=== PATIENT | female | born 1950 | race Caucasian/White ===

== ENCOUNTER 2024-08-10 12:45 | Inpatient (IN) | payer MEDICARE, SELFPAY ==
[2024-08-10 13:11] VITALS: BP 135/75; PULSE 103; RESP 14; TEMP 36.4; O2SAT 97
[2024-08-10 13:15] VITALS: BMI 36.3
[2024-08-10] MEDS: TPN - Clinimix E 8%-14% Soln 2,000 ML with Multivitamins 10 ML, Trace Elements 1 ML, Fo... 63 ML IV (16:49)
[2024-08-10 16:52] LABS: Bedside Glucose 116 mg/dL (74-106)
[2024-08-10] MEDS: 0.9% Saline Lock 10 ML Syringe IV ×2 (16:58→21:26)
--- NOTE | 2024-08-10 19:37 | HP.PCM_ITS ---
HPI - General General Date of Admission: 08/10/24 Date of Service: 08/12/24 Chief Complaint: Here for rehabilitation. HPI Narrative ELGIN FERNANDEZ, is a 73 Female who presents with followin07/25/2024 Admit to [facility]. Recent SBO, upper abdominal pain yesterday. Slid to floor from walker. Large, parastomal hernia, squad took her to [facility]. Transfer to [facility] for SBO. NG placed for vomiting, feels better. Little output from ostomy, NG to LIWS. Lopressor IV for atrial fibrillation. Potassium IV for hypokalemia. 07/31/2024 General Surgery performed partial colectomy, colostomy, repair of incarcerated parastomal hernia. 08/06/2024 TPN started for poor nutritional intake. Good ostomy output. 08/07/2024 LTAC denied, failed peer to peer. 08/08/2024 Low fiber diet, TPN. Nephrology consulted, HUEY resolved. 08/10/2024 Admit to TCU with debility, here for rehabilitation, strengthening, prior to discharge home with SO. [facility] Medical History (Updated 08/10/24 @ 19:[address] Giovany Aldana MD) Acute kidney injury Osteoarthritis Hyperlipidemia, unspecified Essential (primary) hypertension Multiple fractures of pelvis Cataract Atrial fibrillation History of anal cancer Small bowel obstruction Parastomal hernia Gastric outlet obstruction Debility Home Medications ?Medication ?Instructions ?Recorded ?Last Taken ?Type apixaban 5 mg tablet (Eliquis) 5 mg PO BID AFIB 08/10/24 08:15 History atorvastatin 20 mg tablet 20 mg PO DAILY Cholesterol 0 08/10/24 08/09/24 20:20 History cholecalciferol (vitamin D3) 125 125 mcg PO DAILY Supp lement 08/10/24 08/10/24 08:15 History mcg (5,000 unit) capsule diltiazem HCl 240 mg capsule,24 240 mg PO Q12H Heart 0 08/10/24 Unknown History hr,extended release docusate sodium 100 mg capsule 100 mg PO BID Constipat ion 08/10/24 08/10/24 08:15 History (Dulcolax Stool Softener (docusate)) gabapentin 300 mg capsule 300 mg PO QHS Pain 08/10/24 08/10/24 08:20 History oxycodone-acetaminophen 5 mg-325 1 tab PO Q6H PRN Pain 08/10/24 08/10/24 11:00 History mg tablet (Endocet) pantoprazole 40 mg tablet,delayed 40 mg PO DAILY GERD 08/10/24 08/10/24 05:25 History release polyethylene glycol 3350 17 17 g PO DAILY Constipation 08/10/24 08/09/24 11:25 History gram/dose oral powder (Miralax) Allergy/AdvReac Type Severity Reaction Status Date / Time adhesive tape Allergy Itching/Fernie Verified 08/10/24 13:26 h propofol AdvReac Headache Verified 08/10/24 13:26 Family History (Updated 08/10/24 @ 19:[address] Giovany Aldana MD) Mother Hypertension Father Colon cancer Brother Colon cancer Aunt Breast cancer Aunt Breast cancer Aunt Liver cancer Surgical History (Updated 08/10/24 @ 19:[address] Giovany Aldana MD) History of rectal surgery History of oophorectomy History of hysterectomy Status post hernia repair Status post colostomy Status post partial colectomy Social History (Updated 08/10/24 @ 19:[address] Giovany Aldana MD) household members: significant other Smoking Status: Former smoker alcohol intake: never substance use type: does not use ROS Constitutional Constitutional: Reports weakness; Denies chills, fever(s) or weight gain ENT HEENT: Denies headache(s), nasal congestion or nasal discharge Cardiovascular Cardiovascular: Denies chest pain or palpitations Respiratory/Chest Respiratory/Chest: Denies cough, excessive phlegm production or shortness of breath with exertion Gastrointestinal Gastrointestinal: Reports anorexia and nausea; Denies abdominal pain or vomiting Genitourinary Genitourinary: Denies dysuria Musculoskeletal Musculoskeletal: Denies joint pain or joint swelling Integumentary Integumentary: Denies rash or wounds Neurologic Neurologic: Denies focal weakness, numbness or tingling Psychiatric Psychiatric: Denies anxiety, auditory hallucinations, depression, homicidal ideation or suicidal ideation Vital Signs Vital Signs Vital Signs: 08/10/24 13:11 08/10/24 13:58 Temperature 97.6 F L Temperature Source Temporal Pulse Rate 103 H Pulse Rhythm Irregular Pulse Strength Normal (2+) Respiratory Rate 14 Respiratory Effort Normal Non-Labored Respiratory Depth Normal Respiratory Pattern Normal Blood Pressure 135/75 H Blood Pressure Mean 95 Blood Pressure Source Monitor Blood Pressure Position Semi-Fowlers Blood Pressure Location Left Arm Pulse Ox 97 Oxygen Delivery Method Room Air Room Air Weight Weight: 103.646 kg Body Mass Index (BMI) 36.3 Physical Exam Const alert General Appearance: cooperative HEENT normocephalic Eyes PERRL and EOMs intact bilaterally Neck supple, no JVD and no carotid bruits Resp normal respiratory effort, normal air movement and clear to auscultation bilaterally Cardio regular rate and regular rhythm GI normal to inspection, nondistended, normoactive bowel sounds, non-tender and non-distended GI Narrative: Upper abdomen colostomy. Extremity normal capillary refill Extremity Narrative: Right lower extremity PICC line. General Extremity: Negative for edema Skin no rashes or lesions noted General Skin Exam: no breakdown Psych affect normal Appearance: appropriate Results Lab / Micro Data 08/11/24 10:30 08/11/24 10:30 Labs: Laboratory Results - last 24 hr 08/10/24 16:27: POC Glucose 116 H Assessment & Plan Assessment/Plan (1) Debility: (2) Gastric outlet obstruction: (3) Parastomal hernia: (4) Status post partial colectomy: (5) Status post colostomy: (6) Status post hernia repair: (7) Small bowel obstruction: (8) History of anal cancer: (9) Atrial fibrillation: (10) Cataract: (11) Multiple fractures of pelvis: (12) Essential (primary) hypertension: (13) Hyperlipidemia, unspecified: (14) Osteoarthritis: (15) Acute kidney injury: PLAN: Plan 73 year old female with below past medical history hospitalized for SBO, gastric outlet obstruction 2/2 incarcerated parastomal hernia, underwent partial colectomy, colostomy, repair parastomal hernia 07/31/2024, complicated by hypokalemia, acute kidney injury, requiring TPN, admitted to TCU with debility, here for rehabilitation, strengthening, prior to discharge home with SO. * Debility - PT/OT. * Pain - Oxycodone 5mg q6 prn pain (4-10). * Bowel - Miralax 17gm daily, colace 100mg bid. * Adult immunization - Administer pneumonia vaccine, covid vaccine, flu vaccine as appropriate. * DVT prophylaxis - Eliquis. * Atrial fibrillation - Diltiazem 240mg bid, Eliquis 5mg bid. * Hyperlipidemia - Atorvastatin 20mg qhs. * Vitamin D deficiency - D 125mcg daily. * Neuropathic pain - Gabapentin 300mg qhs. * GERD - Pantoprazole 40mg daily. * Nutrition - TPN. * Nausea - Zofran odt 8mg q8 prn, order X-ray abdomen.
[2024-08-10 21:21] VITALS: BP 125/79; PULSE 87
[2024-08-10] MEDS: dilTIAZem CD 240 MG Capsule PO (21:23)
[2024-08-10] MEDS: Docusate Sodium 100 MG Capsule PO (21:24)
[2024-08-10] MEDS: Gabapentin 300 MG Capsule PO (21:24)
[2024-08-10] MEDS: Atorvastatin Calcium 20 MG Tablet PO (21:24)
[2024-08-10] MEDS: APIXABAN 5 MG TABLET PO (21:24)
--- NOTE | 2024-08-10 22:58 | NURSING ---
Patient refusing lab draw for triglycerides. requesting to have drawn off PICC line, TPN currently running and can not draw lab off PICC line while TPN running, will pass along to have drawn in am after TPN finished.
[2024-08-11 00:26] LABS: Bedside Glucose 139 mg/dL (74-106)
[2024-08-11] MEDS: oxyCODONE 5 MG Tablet PO ×2 (03:14→21:19)
[2024-08-11 05:28] VITALS: BMI 36.3
[2024-08-11 06:32] LABS: Bedside Glucose 134 mg/dL (74-106)
[2024-08-11] MEDS: Docusate Sodium 100 MG Capsule PO ×2 (09:28→21:12)
[2024-08-11] MEDS: dilTIAZem CD 240 MG Capsule PO ×2 (09:28→21:12)
[2024-08-11] MEDS: Polyethylene Glycol 3350 17 GM PACKET PO (09:28)
[2024-08-11] MEDS: APIXABAN 5 MG TABLET PO ×2 (09:28→21:12)
[2024-08-11] MEDS: Tuberculin,Purif.prot.deriv. 50 TU/ML Vial 0.1 ML ID (09:29)
[2024-08-11] MEDS: Pantoprazole Sodium 40 MG Tablet PO (09:29)
[2024-08-11] MEDS: Cholecalciferol (Vit D3) 125 MCG CAPSULE (5,000 UNITS) PO (09:29)
[2024-08-11 10:39] LABS: Absolute Lymphocyte Count 0.52 X10^3/uL (0.83-4.51); Absolute Neutrophil Count 8.6 X10^3/uL (2.0-7.7); Basophil# 0.04 X10^3/uL; Basophil% 0.4 % (0-1); Eosinophil# 0.43 X10^3/uL; Eosinophils% 4.2 % (0-5); Hemoglobin 8.7 g/dL (12.0-15.0); Lymphocyte # 0.52 X10^3/ul (0.83-4.51); Lymphocyte % 5.1 % (19-41); Mean Corp Hgb Conc 31.1 g/dL (32-36); Mean Corpuscular Hgb 25.9 pg (27.0-32.0); Mean Corpuscular Volume 83.3 fL (81-99); Monocyte# 0.54 X10^3/uL; Monocyte% 5.3 % (0-10); NRBC Flagged by Analyzer 0 % (0-5); Neutrophil # 8.63 X10^3/uL (2.7-7.7); Neutrophil % 84.3 % (47-70); POSITIVE DIFFERENTIAL YES; Platelet Count 354 K/mm3 (150-450); RBC Distribution Width CV 16.9 % (11.6-14.6); RBC Distribution Width SD 50.4 fl (35.1-43.9); Red Blood Count 3.36 M/mm3 (4.2-5.4); White Blood Count 10.2 K/mm3 (4.4-11.0)
[2024-08-11 11:13] LABS: ALB/GLOB Ratio 1.2 RATIO (0.9-2.4); AST(SGOT) 15 U/L (<=31); Alanine Aminotransfer ALT/SGPT 12 U/L (<=34); Albumin, Serum 3.2 g/dL (3.4-4.8); Alkaline Phosphatase 136 U/L (35-104); Anion Gap 9 (5-15); BUN 25 mg/dL (4-19); BUN/Creat Ratio 37.9 RATIO (10-20); Calcium,Total 9.8 mg/dL (7.6-11.0); Carbon Dioxide 21.8 mmol/L (21.0-32.0); Chloride 104 mmol/L (98-108); Creatinine, Serum 0.67 mg/dL (0.70-1.20); EST Glomerular Filtration Rate 91 (>60); Globulin 2.7 g/dL (2.2-4.2); Glucose 170 mg/dL (70-99); Potassium 4.3 mmol/L (3.3-5.1); Protein, Total 5.9 g/dL (5.9-8.4); Sodium Level 135 mmol/L (133-145); Total Bilirubin 0.48 mg/dL (0.00-1.30)
[2024-08-11 11:55] LABS: Bedside Glucose 138 mg/dL (74-106)
[2024-08-11 13:23] LABS: Triglycerides 98 mg/dL
[2024-08-11] MEDS: TPN - Clinimix E 8%-14% Soln 2,000 ML with Multivitamins 10 ML, Trace Elements 1 ML, Fo... 63 ML IV (15:59)
[2024-08-11 16:00] VITALS: BP 143/79; PULSE 94; RESP 18; TEMP 36.7; O2SAT 92
[2024-08-11 18:04] LABS: Bedside Glucose 127 mg/dL (74-106)
[2024-08-11 21:10] VITALS: BP 148/81; PULSE 86
[2024-08-11] MEDS: 0.9% Saline Lock 10 ML Syringe IV (21:13)
[2024-08-11] MEDS: Atorvastatin Calcium 20 MG Tablet PO (21:13)
[2024-08-11] MEDS: Gabapentin 300 MG Capsule PO (21:16)
--- NOTE | 2024-08-11 21:38 | NURSING ---
Patient with c/o nausea, Dr. Aldana updated via secure backline. New order for Zofran odt 8mg po q8 prn nausea, verified by secure backline message.
[2024-08-11] MEDS: Ondansetron ODT 4 MG Tablet 8 MG PO (22:12)
[2024-08-12 00:16] LABS: Bedside Glucose 151 mg/dL (74-106)
--- NOTE | 2024-08-12 04:31 | NURSING ---
Patient's colostomy appliance started to leak, adhesive left loose, old appliance removed, area cleansed, skin prep applied to area surrounding stoma, appliance replaced with flange [id number] and bag [id number].
--- NOTE | 2024-08-12 05:31 | NURSING ---
Lab attempted lab draw, unable to obtain, patient request labs to be drawn off PICC line when TPN finished.
[2024-08-12 05:42] VITALS: BMI 36.1
[2024-08-12 06:15] LABS: Bedside Glucose 136 mg/dL (74-106)
--- NOTE | 2024-08-12 07:45 | RAD_ITS ---
PROCEDURE: ABDOMEN SINGLE VIEW 08/12/2024 REASON FOR EXAM: NAUSEA, PAIN. RECENT SBO WITH PARTIAL COLECTOMY AND COLOSTOMY TECHNIQUE: Single view abdomen. COMPARISON: None available FINDINGS: Bowel gas: Moderate constipation identified with fecal material distributed throughout the colon. No evidence of bowel obstruction. Calcifications: No suspicious calcifications. Bones: Healing fracture of the superior pubic ramus on the right side with healed fracture of the left inferior pubic ramus. Healing fracture of the left iliac bone. There is evidence of degenerative changes of both sacroiliac joints. Other: Surgical clips are seen overlying the lower abdomen. RAD/Abdomen Single View IMPRESSION: Nonspecific bowel gas pattern. Degenerative changes of the sacroiliac joints bilaterally as well as healing fr actures of the right superior and inferior pubic rami. Reading Location: [place] [address]
[2024-08-12] MEDS: Ondansetron ODT 4 MG Tablet 8 MG PO (08:14)
[2024-08-12] MEDS: dilTIAZem CD 240 MG Capsule PO ×2 (08:15→21:45)
[2024-08-12] MEDS: Docusate Sodium 100 MG Capsule PO ×2 (08:15→21:45)
[2024-08-12] MEDS: APIXABAN 5 MG TABLET PO ×2 (08:15→21:45)
[2024-08-12] MEDS: Cholecalciferol (Vit D3) 125 MCG CAPSULE (5,000 UNITS) PO (08:17)
[2024-08-12] MEDS: Pantoprazole Sodium 40 MG Tablet PO (08:17)
[2024-08-12 10:51] VITALS: O2SAT 96
[2024-08-12 11:07] LABS: ALB/GLOB Ratio 1.3 RATIO (0.9-2.4); AST(SGOT) 14 U/L (<=31); Alanine Aminotransfer ALT/SGPT 13 U/L (<=34); Albumin, Serum 3.3 g/dL (3.4-4.8); Alkaline Phosphatase 136 U/L (35-104); Anion Gap 10 (5-15); BUN 26 mg/dL (4-19); BUN/Creat Ratio 36.7 RATIO (10-20); Calcium,Total 9.8 mg/dL (7.6-11.0); Carbon Dioxide 20.9 mmol/L (21.0-32.0); Chloride 103 mmol/L (98-108); Creatinine, Serum 0.72 mg/dL (0.70-1.20); EST Glomerular Filtration Rate 87 (>60); Globulin 2.6 g/dL (2.2-4.2); Glucose 181 mg/dL (70-99); Potassium 4.2 mmol/L (3.3-5.1); Protein, Total 5.8 g/dL (5.9-8.4); Sodium Level 134 mmol/L (133-145); Total Bilirubin 0.48 mg/dL (0.00-1.30)
--- NOTE | 2024-08-12 11:48 | NURSING ---
Addendum entered by Marga Valadez 08/12/24 12:36: Yobani Watson, SURGICAL GARMENT FITTER from surgeons office called and ok with TCU nursing staff to DC cheyenne and when pt able to go ahead and call office to schedule f/u appt. Original Note: Discussed surgical follow-up appt with resident and significant other. Unsure about transport, significant other unable to transport. Discussed removing cheyenne here if physician allows and they would prefer than. Spoke with Cecelia in Dr. Crockett's office, order for nursing to remove cheyenne 2 weeks post op as long as there are no concerns with site. Updated resident/SO.
--- NOTE | 2024-08-12 13:04 | CASEMGMT ---
Social Work, TCU Admit Note: SW met w/pt and pt's significant other Adrian to complete initial assessment. Introduced self and role. Verified contacts. Patient confirmed code status as DNRCC-A w/intubation. Pt does not have LW/POA, she is to let staff know if she would like to complete these documents while here. SW did explain to pt that without the documents, her son(she has just one child) would be her decision maker, and Adrian would not be considered a decision maker. Pt states understanding. Educated pt and Adrian to [employer] coverage w/next review date of 08/16 and continued stay is not guaranteed. They are aware already of plan of care meeting Monday. Pt's goal is to return home w/spouse. She is open to C If needed, and will also need ostomy supplies. SW will continue to follow for d/c planning. ANDER Beltran
--- NOTE | 2024-08-12 15:53 | PHA.CONS_ITS ---
Documented by User: Lexus Urban 08/12/24 16:02 TCU RX Drug Regimen Review Subjective/Objective Subjective/Objective Subjective: TCU Admission. 73 YOF presented to outside hospital. Hospitalized for SBO, gastric outlet obstruction 2/2 incarcerated parastomal hernia, und erwent partial colectomy, colostomy, repair parastomal hernia 07/31/2024, complicated by hypokalemia, acute kidney injury, requiring TPN. Admitted to TCU with debility for strengthening and rehabilitation. Objective: Allergies adhesive tape Allergy (Verified 08/10/24 13:26) Itching/Rash Allergic to Band-Aid Brand adhesive and 3m Tape propofol Adverse Reaction (Verified 08/10/24 13:26) Headache Current Medications Generic Name Dose Route Start Last Admin Trade Name Freq PRN Reason Stop Dose Admin Apixaban 5 mg 08/10/24 22:00 08/12/24 08:15 Apixaban 5 Mg Tablet PO 5 mg BID ORTEGA Administration Atorvastatin Calcium 20 mg 08/10/24 22:00 08/11/24 21:13 Atorvastatin Calcium 20 Mg Tablet PO 20 mg QHS ORTEGA Administration Cholecalciferol 125 mcg 08/11/24 10:00 08/12/24 08:17 Cholecalciferol (Vit D3) 125 Mcg Capsule (5,000 Units) PO 125 mcg DAILY ORTEGA Administration Diltiazem HCl 240 mg 08/10/24 22:00 08/12/24 08:15 Diltiazem Cd 240 Mg Capsule PO 240 mg BID ORTEGA Administration Docusate Sodium 100 mg 08/10/24 22:00 08/12/24 08:15 Docusate Sodium 100 Mg Capsule PO 100 mg BID ORTEGA Administration Gabapentin 300 mg 08/10/24 22:00 08/11/24 21:16 Gabapentin 300 Mg Capsule PO 300 mg QHS ORTEGA Administration Sodium Chloride 100 mls @ 15 mls/hr 08/10/24 13:26 IV .Q6H40M PRN Saline Flush Multivitamins 10 ml/ Zinc/ 2,011.2 mls @ 63 mls/hr 08/12/24 16:00 Copper/Manganese/Selenium 1 ml IV 08/13/24 07:51 / Folic Acid 1 mg/ Total .Q24H ORTEGA Parenteral Nutrition Fat Emulsion Intravenous 250 mls @ 21 mls/hr 08/12/24 16:00 Intralipid 20% IV 08/13/24 03:54 .[id number] ORTEGA Ondansetron HCl 8 mg 08/11/24 21:36 08/12/24 08:14 Ondansetron Odt 4 Mg Tablet PO 8 mg Q8H PRN PRN Administration NAUSEA Oxycodone HCl 5 mg 08/10/24 17:23 08/11/24 21:19 Oxycodone 5 Mg Tablet PO 5 mg Q6 PRN Administration Pain Score 4-10 or Pre PT/OT Pantoprazole Sodium 40 mg 08/11/24 10:00 08/12/24 08:17 Pantoprazole Sodium 40 Mg Tablet PO 40 mg DAILY ORTEGA Administration Polyethylene Glycol 17 gm 08/11/24 10:00 08/12/24 08:16 Polyethylene Glycol 3350 17 Gm Packet PO Not Given DAILY ORTEGA Sodium Chloride 10 - 40 ml 08/10/24 13:26 08/11/24 21:13 0.9% Saline Lock 10 Ml Syringe IV 10 ml UD PRN Administration Open End PICC Flush Sodium Chloride 10 - 40 ml 08/10/24 13:26 0.9 % Nacl (Sterile) Posiflush 10 Ml IV UD PRN Port access or dressing change Tuberculin PPD 0.1 ml 08/18/24 10:00 Tuberculin,Purif.Prot.Deriv. 50 Tu/Ml Vial ID 08/18/24 10:01 X1 ONE Problem List Acute kidney injury (Acute) Osteoarthritis (Acute) Hyperlipidemia, unspecified (Acute) Essential (primary) hypertension (Acute) Multiple fractures of pelvis (Acute) Cataract (Acute) Atrial fibrillation (Acute) History of anal cancer (Acute) Small bowel obstruction (Acute) Status post hernia repair (Acute) Status post colostomy (Acute) Status post partial colectomy (Acute) Parastomal hernia (Acute) Gastric outlet obstruction (Acute) Debility (Acute) Vital Signs Temp Pulse Resp BP Pulse Ox O2 Del Method 98.1 F 86 18 148/81 H 96 Room Air 08/11/24 16:00 08/11/24 21:10 08/11/24 16:00 08/11/24 21:10 08/12/24 10:51 08/11/24 16:00 Oxygen Delivery Method Room Air Weight: 103.147 kg Body Mass Index (BMI) 36.1 Sodium 134 mmol/L (133-145) 08/12/24 09:45 Potassium 4.2 mmol/L (3.3-5.1) 08/12/24 09:45 Chloride 103 mmol/L (98-108) 08/12/24 09:45 Carbon Dioxide 20.9 mmol/L (21.0-32.0) L 08/12/24 09:45 Anion Gap 10 (5-15) 08/12/24 09:45 BUN 26 mg/dL (4-19) H 08/12/24 09:45 Creatinine 0.72 mg/dL (0.70-1.20) 08/12/24 09:45 Est GFR (MDRD) Non-Af 87 (>60) 08/12/24 09:45 BUN/Creatinine Ratio 36.7 RATIO (10-20) H 08/12/24 09:45 Glucose 181 mg/dL (70-99) H 08/12/24 09:45 Assessment/Plan: 1. Pain: Oxycodone 5mg PO Q6H PRN pain (4-10). Resident has received 1 dose of oxycodone (pain 11/07 - abdomen 08/11/24). Continue to monitor for constipation (last bowel movement 08/12/24), increased pain, respiratory depression/oversedation, falls (BEERs), and PRN usage. 2. Bowel: Miralax 17g PO daily, Docusate 100mg PO BID. Continue to monitor for constipation and/or diarrhea. Last bowel movement 08/12/24. 3. Atrial Fibrillation/DVT Prophylaxis: Diltiazem 240mg PO BID, Eliquis 5mg PO BID. Continue to monitor for s/sx of bleeding, hemoglobin (last 8.7g/dL 08/11/24), hematocrit (last 28% 08/11/24), renal function (last SCr 0.67mg/dL 08/11/24) and bradyarrhythmias. 4. Hyperlipidemia: Atorvastatin 20mg PO QHS. Please consider ordering a lipid panel as there is no panel in the chart. Thanks. Continue to monitor LFTs (last 08/12/24) and muscle pain. 5. GERD: Pantoprazole 40mg PO daily. Continue to monitor S/S of GERD, magnesium, and enteric infections (BEERs for C diff infections). 6. Neuropathic pain: Gabapentin 300mg PO QHS. Continue to monitor for falls/fractures (BEERs), confusion and renal function. 7. Nausea: Ondansetron ODT 8mg PO Q8 PRN.Resident has received 2 PRN doses. Continue to monitor for constipation (last bowel movement 08/12/24), QT prolongation, drowsiness and PRN usage. 8. Vitamin D deficiency: Vitamin D 125mcg PO daily. Please consider ordering a vitamin D level if clinically indicated since there are no levels in the chart. Thanks. 9. Nutrition: TPN and lipid dose today. Please continue to monitor electrolytes. Supervisor Plasma seeing resident. Assessment/Plan for indications treated with psychotropic medications: None Medical chart and medication regimen reviewed. The following medication irregularities or issues were identified: 1. Atorvastatin 20mg PO QHS. Please consider ordering a lipid panel as there is no panel in the chart. Thanks. 2. Vitamin D 125mcg PO daily. Please consider ordering a vitamin D level if clinically indicated since there are no levels in the chart. Thanks. Date Date of Note: 08/12/24 Documented by User: Dr. Giovany Aldana MD 08/12/24 17:25 TCU RX Drug Regimen Review Provider Comments Provider responsibility Provider Comments to Recommendations by Pharmacy Agree
[2024-08-12 16:00] VITALS: BP 132/73; PULSE 88; RESP 16; TEMP 36.4; O2SAT 96
[2024-08-12] MEDS: TPN - Clinimix E 8%-14% Soln 2,000 ML with Multivitamins 10 ML, Trace Elements 1 ML, Fo... 63 ML IV (16:49)
[2024-08-12] MEDS: Fat Emulsions 20% 250 ML IV (16:50)
[2024-08-12] MEDS: 0.9% Saline Lock 10 ML Syringe IV (16:50)
[2024-08-12 18:23] LABS: Bedside Glucose 142 mg/dL (74-106)
[2024-08-12] MEDS: Gabapentin 300 MG Capsule PO (21:45)
[2024-08-12] MEDS: Atorvastatin Calcium 20 MG Tablet PO (21:45)
[2024-08-12] MEDS: oxyCODONE 5 MG Tablet PO (21:45)
[2024-08-12 21:57] VITALS: BP 134/80; PULSE 94; PULSE 95; RESP 18
[2024-08-13 00:15] VITALS: PULSE 87; RESP 18
[2024-08-13 00:43] LABS: Bedside Glucose 127 mg/dL (74-106)
[2024-08-13 04:24] VITALS: BMI 36.0
[2024-08-13 06:34] LABS: Bedside Glucose 140 mg/dL (74-106)
[2024-08-13] MEDS: Docusate Sodium 100 MG Capsule PO ×2 (09:15→21:38)
[2024-08-13] MEDS: dilTIAZem CD 240 MG Capsule PO ×2 (09:15→21:38)
[2024-08-13] MEDS: APIXABAN 5 MG TABLET PO ×2 (09:15→21:38)
[2024-08-13] MEDS: Pantoprazole Sodium 40 MG Tablet PO (09:16)
[2024-08-13] MEDS: Cholecalciferol (Vit D3) 125 MCG CAPSULE (5,000 UNITS) PO (09:16)
[2024-08-13 09:18] VITALS: BP 124/66; PULSE 81; RESP 14; TEMP 36.8; O2SAT 95
[2024-08-13 10:14] VITALS: BP 119/66; PULSE 86; RESP 16; TEMP 37; O2SAT 99
[2024-08-13] MEDS: Ondansetron ODT 4 MG Tablet 8 MG PO (10:19)
[2024-08-13 10:39] VITALS: BMI 36.0
--- NOTE | 2024-08-13 11:51 | NURSING ---
Offered covid vaccine, VIS provided. Resident declines.
[2024-08-13 12:23] LABS: ALB/GLOB Ratio 1.2 RATIO (0.9-2.4); AST(SGOT) 25 U/L (<=31); Alanine Aminotransfer ALT/SGPT 21 U/L (<=34); Albumin, Serum 3.2 g/dL (3.4-4.8); Alkaline Phosphatase 170 U/L (35-104); Anion Gap 9 (5-15); BUN 26 mg/dL (4-19); BUN/Creat Ratio 34.7 RATIO (10-20); Calcium,Total 9.8 mg/dL (7.6-11.0); Carbon Dioxide 20.3 mmol/L (21.0-32.0); Chloride 107 mmol/L (98-108); Creatinine, Serum 0.75 mg/dL (0.70-1.20); EST Glomerular Filtration Rate 83 (>60); Estimated Creatinine Clearance 73.65 ml/min (50-250); Globulin 2.6 g/dL (2.2-4.2); Glucose 122 mg/dL (70-99); Potassium 4.3 mmol/L (3.3-5.1); Protein, Total 5.8 g/dL (5.9-8.4); Sodium Level 137 mmol/L (133-145); Total Bilirubin 0.49 mg/dL (0.00-1.30); Vitamin D,25 Hydroxy 37.2 ng/mL (30-100)
[2024-08-13 12:27] LABS: Bedside Glucose 110 mg/dL (74-106)
[2024-08-13 12:53] LABS: Cholesterol 111 mg/dL (<=200); High Density Lipoprotein 34 mg/dL; Low Density Lipoprotein Calc. 63 mg/dL; Triglycerides 73 mg/dL; Very Low Density Lipoprotein 15 mg/dL (5-40); cholesterol:hdl ratio screen 3.26
--- NOTE | 2024-08-13 14:29 | CHAPLAIN ---
Type of Pastoral Visit _x__ Initial Visit ___ Follow-up Visit ___ On-call Visit ___ General Patient Visit ___ Spiritual Assessment ___ Family Conference ___ Bereavement ___ Rapid Response ___ Code Blue ___ Other (describe below) Pastoral Care Referral From _x__ Patient ___ Family ___ Nurse ___ Physician ___ Country Director ___ Saw Tailer ___ Other (describe below) Sacrament/Intervention _x__ Active listening ___ Anointing ___ Tenriism ___ Bereavement ___ Communion ___ Radha exploration ___ ___ Life review ___ Prayer ___ Reconciliation ___ Sacrament of Sick _x__ Supportive presence ___ Wedding ___ Other (describe below) Pastoral Comments patient is quietly resting in bed but is awake; pt states that she has limited family or friends in the area but does not feel like she has any concerns; pt has hope that this will be a good experience but admits that it is early; pt denies need for spiritual care support today
[2024-08-13] MEDS: Atorvastatin Calcium 20 MG Tablet PO (21:38)
[2024-08-13] MEDS: Gabapentin 300 MG Capsule PO (21:38)
[2024-08-13] MEDS: 0.9% Saline Lock 10 ML Syringe IV (21:39)
[2024-08-13 21:48] VITALS: BP 136/84; PULSE 91
[2024-08-14 04:43] VITALS: BMI 35.5
--- NOTE | 2024-08-14 06:25 | NURSING ---
This nurse removed 35 cheyenne to abdominal surgical site per order. Patient tolerated the removal well. No drainage observed. Surgical site dry and intact. ABDs placed overtop abdominal surgical site to prevent abrasions against abdominal binder. Patient repositioned to comfort, assessed needs. Patient denies further assistance or intervention. Patient thanked this nurse. Call light in patient's reach.
[2024-08-14 08:44] VITALS: BP 127/70; PULSE 93; RESP 18; TEMP 36.9; O2SAT 99
[2024-08-14] MEDS: APIXABAN 5 MG TABLET PO ×2 (08:46→20:58)
[2024-08-14] MEDS: dilTIAZem CD 240 MG Capsule PO ×2 (08:46→21:08)
[2024-08-14] MEDS: Cholecalciferol (Vit D3) 125 MCG CAPSULE (5,000 UNITS) PO (08:46)
[2024-08-14] MEDS: Pantoprazole Sodium 40 MG Tablet PO (08:46)
[2024-08-14] MEDS: Docusate Sodium 100 MG Capsule PO ×2 (08:46→20:58)
--- NOTE | 2024-08-14 09:15 | NURSING ---
Addendum entered by Nanci Wilcox 08/14/24 18:32: Pt had one dose of PRN zofran today, effective. No further weakness/nausea episodes today. Original Note: ~0900 therapy notifies that pt had weakness after getting up and during morning care. Pt reports that she felt weak and nauseous but that it resolved by the time therapy ended. Reports that she has had similar episodes with strong food odors and yesterday morning. BLE, BUE strength WNL. A&O baseline. Vitals: bp-127/70, p-83, r-18, t-98.4, sp02-99% RA. Denies malaise and nausea and pain at this time.
--- NOTE | 2024-08-14 11:41 | NURSING ---
Pulp Screen Operator Note; Activity Asset: Nancy Hicks is independent in her choice of daily activities. Her significant other will bring items from home she may need. At this time she prefers in room activities over group. She has her smartphone she plays cards on, anabaptism visits, read, watches tv and she welcomes visits from our rn cvicu and therapy dog when available. Staff will remind her of weekly activities and respect her right to say no.
[2024-08-14] MEDS: Ondansetron ODT 4 MG Tablet 8 MG PO (14:05)
--- NOTE | 2024-08-14 14:53 | CASEMGMT ---
Social Work IDT met with patient and SO for care plan meeting. Discussed patient's progress in PT/OT/SN. Educated to [facility] insurance with NRD 08/14 and continued stay is not guaranteed with each review. Provided pt/family with written communication of insurance process and copay coverage during stay. Inquired about company pt used for previous ostomy supplies - [employer]. SW notified wound nurse. SW inquired about PCP - Dr. Meera Monique in [place], but she just retired July 30, and office schedule a March appt with another provider in the office that pt could not recall the name. SW educated to scheduling an appt at [facility], per protocol. Pt and SO noted they shared the rollator. SW observed SO uses a portable O2 tank and relies on the rollator for stability and mobility. is small in stature and walks slowly. SW offered to request a new rollator through insurance, if pt is able to pay the standard $60 copay and any additional copay. Pt agreed. CAROL inquired about assistance level pt needs to be at to return home. Pt prefers she increases her overall strength and independence with toileting. SW inquired she would DC prior meeting those goals, would she be interested in a SNF or would she return home. Pt stated she would return home regardless. CAROL educated to CAROL coordinating skilled HHC at [facility] to assist with transition home. SW will provide recommendations at time of DC and assist with needs. pt and SO appreciative. SW will continue to follow. Mayte Rees MAGAZINE HAND DOMESTIC FREIGHT FORWARDER
--- NOTE | 2024-08-14 15:01 | WOUNDNOTE ---
In to talk with patient about ostomy needs at home. Pt states she had anal cancer that had invaded into the vaginal wall. states she had a colostomy at this time. pt ended up with incarcerate paristomal hernia so they had to move the stoma. Pt states she was getting her ostomy supplies from [employer] and would like to continue getting the same appliances if possible. pt was using a one piece flat appliance with clip closure by [facility]. While in TCU will use the supplies stocked on the unit which is 2 piece flat [employer] appliances. pt does not feel she needs home health since she is not changing supplies or supply company at home. pt had previous stoma for over 7 years and states she feels very comfortable changing the appliance. this nurse will plan to change the appliance to assess the stoma to be sure pt doesn't need a convex appliance. pt appreciative. pt denies further needs at this time.
[2024-08-14] MEDS: Atorvastatin Calcium 20 MG Tablet PO (20:58)
[2024-08-14] MEDS: oxyCODONE 5 MG Tablet PO (20:59)
[2024-08-14] MEDS: Nystatin Powder 15gm Bottle 1 APPLIC TOPICAL (21:06)
[2024-08-14] MEDS: Gabapentin 300 MG Capsule PO (21:07)
[2024-08-15 05:45] VITALS: BMI 35.9
[2024-08-15 09:29] VITALS: BP 125/74; PULSE 88; RESP 17; TEMP 36.4; O2SAT 97
[2024-08-15] MEDS: Docusate Sodium 100 MG Capsule PO ×2 (09:33→21:02)
[2024-08-15] MEDS: Pantoprazole Sodium 40 MG Tablet PO (09:33)
[2024-08-15] MEDS: Cholecalciferol (Vit D3) 125 MCG CAPSULE (5,000 UNITS) PO (09:33)
[2024-08-15] MEDS: APIXABAN 5 MG TABLET PO ×2 (09:33→21:02)
[2024-08-15] MEDS: dilTIAZem CD 240 MG Capsule PO ×2 (09:33→21:02)
[2024-08-15] MEDS: Nystatin Powder 15gm Bottle 1 APPLIC TOPICAL ×2 (09:33→21:03)
--- NOTE | 2024-08-15 11:51 | MDS.RN ---
Pain assessment for MDS complete.
[2024-08-15] MEDS: Atorvastatin Calcium 20 MG Tablet PO (21:02)
[2024-08-15] MEDS: Gabapentin 300 MG Capsule PO (21:02)
[2024-08-15 21:13] VITALS: BP 120/65; PULSE 90
[2024-08-15] MEDS: oxyCODONE 5 MG Tablet PO (22:48)
[2024-08-16 05:40] VITALS: BMI 35.4
[2024-08-16 07:06] LABS: Absolute Lymphocyte Count 0.59 X10^3/uL (0.83-4.51); Absolute Neutrophil Count 4.2 X10^3/uL (2.0-7.7); Basophil# 0.03 X10^3/uL; Basophil% 0.5 % (0-1); Eosinophil# 0.41 X10^3/uL; Eosinophils% 7.1 % (0-5); Hematocrit 23.7 % (37-47); Hemoglobin 7.2 g/dL (12.0-15.0); Lymphocyte # 0.59 X10^3/ul (0.83-4.51); Lymphocyte % 10.3 % (19-41); Mean Corp Hgb Conc 30.4 g/dL (32-36); Mean Corpuscular Hgb 24.8 pg (27.0-32.0); Mean Corpuscular Volume 81.7 fL (81-99); Monocyte# 0.48 X10^3/uL; Monocyte% 8.4 % (0-10); NRBC Flagged by Analyzer 0 % (0-5); Neutrophil % 73.2 % (47-70); POSITIVE DIFFERENTIAL YES; Platelet Count 279 K/mm3 (150-450); RBC Distribution Width CV 16.8 % (11.6-14.6); RBC Distribution Width SD 50.1 fl (35.1-43.9); White Blood Count 5.7 K/mm3 (4.4-11.0)
--- NOTE | 2024-08-16 07:18 | NURSING ---
notified dr anderson pt hgb at 7.2-down from 8.7 on 08/11
[2024-08-16 08:17] LABS: Anion Gap 9 (5-15); BUN 15 mg/dL (4-19); BUN/Creat Ratio 18.6 RATIO (10-20); Calcium,Total 9.3 mg/dL (7.6-11.0); Carbon Dioxide 22.1 mmol/L (21.0-32.0); Chloride 108 mmol/L (98-108); Creatinine, Serum 0.79 mg/dL (0.70-1.20); EST Glomerular Filtration Rate 78 (>60); Estimated Creatinine Clearance 72.96 ml/min (50-250); Glucose 96 mg/dL (70-99); Potassium 3.7 mmol/L (3.3-5.1); Sodium Level 138 mmol/L (133-145)
[2024-08-16 09:00] VITALS: BP 143/76; PULSE 103; RESP 17; TEMP 36.6; O2SAT 96
[2024-08-16] MEDS: Nystatin Powder 15gm Bottle 1 APPLIC TOPICAL ×2 (09:32→21:31)
[2024-08-16] MEDS: Docusate Sodium 100 MG Capsule PO ×2 (09:32→21:30)
[2024-08-16] MEDS: dilTIAZem CD 240 MG Capsule PO ×2 (09:32→21:31)
[2024-08-16] MEDS: APIXABAN 5 MG TABLET PO ×2 (09:32→21:30)
[2024-08-16] MEDS: Pantoprazole Sodium 40 MG Tablet PO (09:33)
[2024-08-16] MEDS: Ondansetron ODT 4 MG Tablet 8 MG PO (09:33)
[2024-08-16] MEDS: Cholecalciferol (Vit D3) 125 MCG CAPSULE (5,000 UNITS) PO (09:33)
[2024-08-16] MEDS: Polyethylene Glycol 3350 17 GM PACKET PO (09:41)
[2024-08-16 10:49] LABS: Iron 13 ug/dL (50-170); Iron Binding Capacity,Total 253 ug/dL (250-450); Iron Binding Capacity,Unsat 240 ug/dL (228-428)
[2024-08-16] MEDS: 0.9% Saline Lock 10 ML Syringe IV ×3 (11:55→21:35)
--- NOTE | 2024-08-16 13:13 | CASEMGMT ---
Social Work SW completed BIMS () and PHQ-2 () for MDS assessment. Mayte Rees FAMILY DEVELOPMENT EXTENSION SPECIALIST HOSPITAL PLAN ADMINISTRATOR
--- NOTE | 2024-08-16 14:54 | NURSING ---
PT IS SCHEDULED TO RECEIVE TRANSFUSION- 2 UNITS. ORIGINALLY SCHEDULED FOR MONDAY. PT BECAME DIZZY- TRANSFUSION CHANGED TO WEEKEND PT IS SUPPOSED TO BE TRANSFUSED ON MONDAY
[2024-08-16] MEDS: Gabapentin 300 MG Capsule PO (21:29)
[2024-08-16] MEDS: oxyCODONE 5 MG Tablet PO (21:29)
[2024-08-16] MEDS: Atorvastatin Calcium 20 MG Tablet PO (21:31)
[2024-08-16 21:33] VITALS: BP 142/73; PULSE 92; RESP 16
[2024-08-17] VITALS (10 sets, daily range): BP systolic 112–159; BP diastolic 57–88; PULSE 68–98; RESP 18; TEMP 36.6–37.1; O2SAT 93–100; BMI 35.9
[2024-08-17] MEDS: dilTIAZem CD 240 MG Capsule PO ×2 (07:50→22:02)
[2024-08-17] MEDS: Cholecalciferol (Vit D3) 125 MCG CAPSULE (5,000 UNITS) PO (07:50)
[2024-08-17] MEDS: Docusate Sodium 100 MG Capsule PO ×2 (07:51→22:03)
[2024-08-17] MEDS: APIXABAN 5 MG TABLET PO ×2 (07:51→22:03)
[2024-08-17] MEDS: Pantoprazole Sodium 40 MG Tablet PO (07:51)
[2024-08-17] MEDS: Nystatin Powder 15gm Bottle 1 APPLIC TOPICAL ×2 (07:52→22:01)
[2024-08-17] MEDS: Polyethylene Glycol 3350 17 GM PACKET PO (07:52)
[2024-08-17] MEDS: Iron Polysaccharide Complex 150 MG CAPSULE PO (12:09)
[2024-08-17] MEDS: 0.9% Saline Lock 10 ML Syringe IV ×2 (13:29→16:44)
[2024-08-17] MEDS: 0.9% Normal Saline (100mL Bag) 100 ML 15 ML IV (13:29)
--- NOTE | 2024-08-17 14:09 | NURSING ---
pt a&o x3-lungs clear abdomen rounded but soft, lungs clear 1+ pedal edema-here for 2 units of blood
[2024-08-17] MEDS: Furosemide 20 MG/2 ML VIAL IV (16:44)
[2024-08-17] MEDS: Gabapentin 300 MG Capsule PO (22:01)
[2024-08-17] MEDS: oxyCODONE 5 MG Tablet PO (22:01)
[2024-08-17] MEDS: Atorvastatin Calcium 20 MG Tablet PO (22:03)
[2024-08-18 05:10] VITALS: BMI 35.8
[2024-08-18 09:25] VITALS: BP 136/63; PULSE 75; RESP 17; TEMP 36.4; O2SAT 96
[2024-08-18] MEDS: Docusate Sodium 100 MG Capsule PO ×2 (09:34→21:53)
[2024-08-18] MEDS: dilTIAZem CD 240 MG Capsule PO ×2 (09:34→21:53)
[2024-08-18] MEDS: APIXABAN 5 MG TABLET PO ×2 (09:34→21:53)
[2024-08-18] MEDS: Ascorbic Acid 500 MG Tablet PO (09:35)
[2024-08-18] MEDS: Pantoprazole Sodium 40 MG Tablet PO (09:35)
[2024-08-18] MEDS: Cholecalciferol (Vit D3) 125 MCG CAPSULE (5,000 UNITS) PO (09:35)
[2024-08-18] MEDS: Acetaminophen 500 MG Tablet 1000 MG PO (09:35)
[2024-08-18] MEDS: 0.9% Saline Lock 10 ML Syringe IV (09:36)
[2024-08-18] MEDS: Tuberculin,Purif.prot.deriv. 50 TU/ML Vial 0.1 ML ID (09:39)
[2024-08-18] MEDS: Iron Polysaccharide Complex 150 MG CAPSULE PO (09:42)
[2024-08-18 20:12] LABS: Absolute Lymphocyte Count 0.74 X10^3/uL (0.83-4.51); Absolute Neutrophil Count 3.9 X10^3/uL (2.0-7.7); Basophil# 0.03 X10^3/uL; Basophil% 0.5 % (0-1); Eosinophil# 0.39 X10^3/uL; Eosinophils% 6.8 % (0-5); Hematocrit 31.5 % (37-47); Hemoglobin 9.8 g/dL (12.0-15.0); Lymphocyte # 0.74 X10^3/ul (0.83-4.51); Mean Corp Hgb Conc 31.1 g/dL (32-36); Mean Corpuscular Hgb 25.7 pg (27.0-32.0); Mean Corpuscular Volume 82.7 fL (81-99); Mean Platelet Vol. 9.5 fl (6.2-12.0); Monocyte# 0.59 X10^3/uL; Monocyte% 10.4 % (0-10); NRBC Flagged by Analyzer 0 % (0-5); Neutrophil # 3.93 X10^3/uL (2.7-7.7); Neutrophil % 68.9 % (47-70); Platelet Count 209 K/mm3 (150-450); RBC Distribution Width CV 16.9 % (11.6-14.6); RBC Distribution Width SD 50.8 fl (35.1-43.9); Red Blood Count 3.81 M/mm3 (4.2-5.4); White Blood Count 5.7 K/mm3 (4.4-11.0)
[2024-08-18] MEDS: Atorvastatin Calcium 20 MG Tablet PO (21:53)
[2024-08-18] MEDS: Gabapentin 300 MG Capsule PO (21:53)
[2024-08-18] MEDS: oxyCODONE 5 MG Tablet PO (21:55)
[2024-08-18 21:59] VITALS: BP 148/83; PULSE 91; RESP 18; TEMP 36.7; O2SAT 96
[2024-08-19 05:13] VITALS: BMI 35.6
[2024-08-19 08:53] VITALS: BP 134/78; PULSE 87; RESP 17; TEMP 36.3; O2SAT 97
[2024-08-19] MEDS: dilTIAZem CD 240 MG Capsule PO ×2 (08:58→21:50)
[2024-08-19] MEDS: APIXABAN 5 MG TABLET PO ×2 (08:58→21:51)
[2024-08-19] MEDS: Iron Polysaccharide Complex 150 MG CAPSULE PO (08:58)
[2024-08-19] MEDS: Docusate Sodium 100 MG Capsule PO ×2 (08:58→21:51)
[2024-08-19] MEDS: Ascorbic Acid 500 MG Tablet PO (08:59)
[2024-08-19] MEDS: 0.9% Saline Lock 10 ML Syringe IV ×2 (08:59→21:55)
[2024-08-19] MEDS: Pantoprazole Sodium 40 MG Tablet PO (08:59)
[2024-08-19] MEDS: Polyethylene Glycol 3350 17 GM PACKET PO (08:59)
[2024-08-19] MEDS: Cholecalciferol (Vit D3) 125 MCG CAPSULE (5,000 UNITS) PO (08:59)
--- NOTE | 2024-08-19 09:00 | NURSING ---
Paper Tube Machine Operator Note; MDS for 08/17/2024 Complete
[2024-08-19] MEDS: oxyCODONE 5 MG Tablet PO (21:50)
[2024-08-19] MEDS: Gabapentin 300 MG Capsule PO (21:50)
[2024-08-19] MEDS: Atorvastatin Calcium 20 MG Tablet PO (21:51)
[2024-08-19 21:59] VITALS: BP 152/75; PULSE 75; RESP 18
[2024-08-19 22:00] VITALS: PULSE 75; RESP 16; O2SAT 96
[2024-08-20 05:15] VITALS: BMI 35.9
[2024-08-20] MEDS: Cholecalciferol (Vit D3) 125 MCG CAPSULE (5,000 UNITS) PO (08:04)
[2024-08-20] MEDS: Iron Polysaccharide Complex 150 MG CAPSULE PO (08:04)
[2024-08-20] MEDS: dilTIAZem CD 240 MG Capsule PO ×2 (08:04→21:29)
[2024-08-20] MEDS: Pantoprazole Sodium 40 MG Tablet PO (08:04)
[2024-08-20] MEDS: APIXABAN 5 MG TABLET PO ×2 (08:04→21:28)
[2024-08-20] MEDS: Polyethylene Glycol 3350 17 GM PACKET PO (08:04)
[2024-08-20] MEDS: Ascorbic Acid 500 MG Tablet PO (08:04)
[2024-08-20] MEDS: Docusate Sodium 100 MG Capsule PO ×2 (08:06→21:29)
[2024-08-20] MEDS: 0.9% Saline Lock 10 ML Syringe IV (08:07)
[2024-08-20 09:32] LABS: Magnesium 1.7 mg/dL (1.5-2.2); Phosphorus 3.4 mg/dL (2.7-4.5)
[2024-08-20 09:48] VITALS: BMI 35.9
[2024-08-20 15:58] VITALS: BP 153/75; PULSE 77; RESP 17; TEMP 36; O2SAT 98
[2024-08-20 21:00] VITALS: PULSE 91; RESP 18; O2SAT 96
[2024-08-20] MEDS: Atorvastatin Calcium 20 MG Tablet PO (21:28)
[2024-08-20] MEDS: Gabapentin 300 MG Capsule PO (21:29)
[2024-08-20] MEDS: Acetaminophen 500 MG Tablet 1000 MG PO (21:29)
[2024-08-20 21:30] VITALS: BP 133/64; PULSE 91; RESP 16
[2024-08-21 04:56] VITALS: BMI 35.6
[2024-08-21] MEDS: 0.9% Saline Lock 10 ML Syringe IV (05:57)
[2024-08-21 06:14] LABS: Hematocrit 31.9 % (37-47); Hemoglobin 9.9 g/dL (12.0-15.0)
[2024-08-21] MEDS: dilTIAZem CD 240 MG Capsule PO ×2 (07:40→22:30)
[2024-08-21] MEDS: Docusate Sodium 100 MG Capsule PO ×2 (07:40→22:30)
[2024-08-21] MEDS: Iron Polysaccharide Complex 150 MG CAPSULE PO (07:40)
[2024-08-21] MEDS: Pantoprazole Sodium 40 MG Tablet PO (07:41)
[2024-08-21] MEDS: Cholecalciferol (Vit D3) 125 MCG CAPSULE (5,000 UNITS) PO (07:41)
[2024-08-21] MEDS: APIXABAN 5 MG TABLET PO ×2 (07:41→22:30)
[2024-08-21] MEDS: Ascorbic Acid 500 MG Tablet PO (07:41)
[2024-08-21] MEDS: Polyethylene Glycol 3350 17 GM PACKET PO (07:41)
[2024-08-21] MEDS: Citalopram 10 MG Tablet PO (09:19)
[2024-08-21 10:00] VITALS: BP 116/69; PULSE 86; RESP 16; TEMP 36.7; O2SAT 97
--- NOTE | 2024-08-21 15:17 | NURSING ---
Colostomy leaking. Patient educated how to cut new wafer and apply new appliance. Patient denies questions at this time. Patient also made aware of new order for Citalopram.
[2024-08-21] MEDS: Acetaminophen 500 MG Tablet 1000 MG PO (15:51)
[2024-08-21 22:30] VITALS: BP 137/73; PULSE 83; RESP 18; O2SAT 96
[2024-08-21] MEDS: Gabapentin 300 MG Capsule PO (22:30)
[2024-08-21] MEDS: Atorvastatin Calcium 20 MG Tablet PO (22:30)
[2024-08-22 05:59] VITALS: BMI 35.9
[2024-08-22 08:11] VITALS: BP 114/66; PULSE 95; RESP 16; TEMP 36.3; O2SAT 97
--- NOTE | 2024-08-22 08:18 | MDS.RN ---
Information for the MDS was obtained from review of the clinical record, interview of resident, staff, and direct observation of resident?s care.
[2024-08-22] MEDS: dilTIAZem CD 240 MG Capsule PO ×2 (08:19→20:13)
[2024-08-22] MEDS: Iron Polysaccharide Complex 150 MG CAPSULE PO (08:19)
[2024-08-22] MEDS: Citalopram 10 MG Tablet PO (08:19)
[2024-08-22] MEDS: Docusate Sodium 100 MG Capsule PO ×2 (08:19→20:13)
[2024-08-22] MEDS: Cholecalciferol (Vit D3) 125 MCG CAPSULE (5,000 UNITS) PO (08:20)
[2024-08-22] MEDS: Ascorbic Acid 500 MG Tablet PO (08:20)
[2024-08-22] MEDS: Pantoprazole Sodium 40 MG Tablet PO (08:20)
[2024-08-22] MEDS: APIXABAN 5 MG TABLET PO ×2 (08:20→20:13)
[2024-08-22] MEDS: 0.9% Saline Lock 10 ML Syringe IV (18:22)
[2024-08-22] MEDS: Gabapentin 300 MG Capsule PO (20:12)
[2024-08-22] MEDS: Atorvastatin Calcium 20 MG Tablet PO (20:14)
[2024-08-23 04:51] VITALS: BMI 36.4
[2024-08-23 06:45] LABS: Absolute Lymphocyte Count 0.53 X10^3/uL (0.83-4.51); Absolute Neutrophil Count 5.6 X10^3/uL (2.0-7.7); Basophil# 0.03 X10^3/uL; Basophil% 0.4 % (0-1); Eosinophil# 0.29 X10^3/uL; Eosinophils% 4.1 % (0-5); Hematocrit 32.3 % (37-47); Hemoglobin 10.1 g/dL (12.0-15.0); Lymphocyte # 0.53 X10^3/ul (0.83-4.51); Lymphocyte % 7.5 % (19-41); Mean Corp Hgb Conc 31.3 g/dL (32-36); Mean Corpuscular Hgb 25.7 pg (27.0-32.0); Mean Corpuscular Volume 82.2 fL (81-99); Mean Platelet Vol. 9.6 fl (6.2-12.0); Monocyte# 0.64 X10^3/uL; NRBC Flagged by Analyzer 0 % (0-5); Neutrophil % 78.7 % (47-70); POSITIVE DIFFERENTIAL YES; Platelet Count 276 K/mm3 (150-450); RBC Distribution Width CV 17.2 % (11.6-14.6); RBC Distribution Width SD 51.8 fl (35.1-43.9); Red Blood Count 3.93 M/mm3 (4.2-5.4); White Blood Count 7.1 K/mm3 (4.4-11.0)
[2024-08-23 07:36] LABS: Anion Gap 11 (5-15); BUN 11 mg/dL (4-19); BUN/Creat Ratio 17.1 RATIO (10-20); Calcium,Total 9.3 mg/dL (7.6-11.0); Carbon Dioxide 22.6 mmol/L (21.0-32.0); Chloride 109 mmol/L (98-108); Creatinine, Serum 0.65 mg/dL (0.70-1.20); EST Glomerular Filtration Rate 92 (>60); Estimated Creatinine Clearance 74.09 ml/min (50-250); Glucose 95 mg/dL (70-99); Potassium 3.5 mmol/L (3.3-5.1); Sodium Level 143 mmol/L (133-145)
[2024-08-23] MEDS: Ondansetron ODT 4 MG Tablet 8 MG PO (07:53)
[2024-08-23] MEDS: Iron Polysaccharide Complex 150 MG CAPSULE PO (09:18)
[2024-08-23] MEDS: dilTIAZem CD 240 MG Capsule PO ×2 (09:19→21:27)
[2024-08-23] MEDS: Citalopram 10 MG Tablet PO (09:19)
[2024-08-23] MEDS: Pantoprazole Sodium 40 MG Tablet PO (09:20)
[2024-08-23] MEDS: Ascorbic Acid 500 MG Tablet PO (09:20)
[2024-08-23] MEDS: APIXABAN 5 MG TABLET PO ×2 (09:20→21:27)
[2024-08-23] MEDS: Cholecalciferol (Vit D3) 125 MCG CAPSULE (5,000 UNITS) PO (09:20)
[2024-08-23] MEDS: Docusate Sodium 100 MG Capsule PO ×2 (09:20→21:27)
[2024-08-23 10:00] VITALS: BP 121/73; PULSE 94; RESP 16; TEMP 36.6; O2SAT 98
[2024-08-23] MEDS: Acetaminophen 500 MG Tablet 1000 MG PO (10:29)
--- NOTE | 2024-08-23 13:46 | CASEMGMT ---
Addendum entered by Mayte Rees 08/23/24 15:22: spoke with pt and about HHC. Pt/ agreeable. - CAROL followed up with pt and provided list of skilled HHC agencies within geographical area, INN with insurance, that include quality and resource data via [employer] guide. Pt to review and notify this worker of choices. Original Note: Social Work Pt requesting to DC. CAROL spoke with pt and at bedside. Discussed pt's current LOF and if pt feels she is back to baseline, better or worse. Pt and both state pt has improved and returned to baseline. Pt can manage own toileting tasks. SW offered DC 08/28. Insurance update is 08/26. Pt and agreeable. SW offered HHC vs OP therapy. Pt and denied both. CAROL educated to continuing with therapy to prevent decline. Pt still denied. CAROL educated to contacting PCP if she changes her mind. SW confirmed need for rollator and copay cost. to transport at DC. - CAROL sent referral to [facility] for rollator. Plan: DC home with 08/28, rollator Mayte Rees ELECTRONIC WIRER TILER'S ASSISTANT
--- NOTE | 2024-08-23 15:06 | DS.PCM_ITS ---
Providers Date of Admission: 08/10/24 Primary Care Physician: Dr. Meera Monique MD Consultations 08/14/24 14:48 Consult: Onc/Wound/service center coordinator Routine Comment: Reason for Consult:: ostomy needs for home Reason For Visit: GASTRIC OBSTRUCTION Diagnosis Discharge Diagnosis (1) Debility: Status: Acute Code(s): R53.81 - Other malaise (2) Gastric outlet obstruction: Status: Acute Code(s): K31.1 - Adult hypertrophic pyloric stenosis (3) Parastomal hernia: Status: Acute Code(s): K43.5 - Parastomal hernia without obstruction or gangrene (4) Status post partial colectomy: Status: Acute Code(s): Z90.49 - Acquired absence of other specified parts of digestive tract (5) Status post colostomy: Status: Acute Code(s): Z93.3 - Colostomy status (6) Status post hernia repair: Status: Acute Code(s): Z98.890 - Other specified postprocedural states; Z87.19 - Personal history of other diseases of the digestive system (7) Small bowel obstruction: Status: Acute Code(s): K56.609 - Unspecified intestinal obstruction, unspecified as to partial versus complete obstruction (8) History of anal cancer: Status: Acute Code(s): Z85.048 - Personal history of other malignant neoplasm of rectum, rectosigmoid junction, and anus (9) Atrial fibrillation: Status: Acute Code(s): I48.91 - Unspecified atrial fibrillation (10) Cataract: Status: Acute Code(s): H26.9 - Unspecified cataract (11) Multiple fractures of pelvis: Status: Acute Code(s): S32.82XA - Multiple fractures of pelvis without disruption of pelvic ring, initial encounter for closed fracture (12) Essential (primary) hypertension: Status: Acute Code(s): I10 - Essential (primary) hypertension (13) Hyperlipidemia, unspecified: Status: Acute Code(s): E78.5 - Hyperlipidemia, unspecified (14) Osteoarthritis: Status: Acute Code(s): M19.90 - Unspecified osteoarthritis, unspecified site (15) Acute kidney injury: Status: Acute Code(s): N17.9 - Acute kidney failure, unspecified Plan 73 year old female with below past medical history hospitalized for SBO, gastric outlet obstruction 2/2 incarcerated parastomal hernia, underwent partial colectomy, colostomy, repair parastomal hernia 07/31/2024, complicated by hypokalemia, acute kidney injury, requiring TPN, admitted to TCU with debility, here for rehabilitation, strengthening, prior to discharge home with SO. * Debility - PT/OT. * Pain - Oxycodone 5mg q6 prn pain (4-10). * Bowel - Miralax 17gm daily, colace 100mg bid. * Adult immunization - Administer pneumonia vaccine, covid vaccine, flu vaccine as appropriate. * DVT prophylaxis - Eliquis. * Atrial fibrillation - Diltiazem 240mg bid, Eliquis 5mg bid. * Hyperlipidemia - Atorvastatin 20mg qhs. * Vitamin D deficiency - D 125mcg daily. * Neuropathic pain - Gabapentin 300mg qhs. * GERD - Pantoprazole 40mg daily. * Nutrition - TPN. * Nausea - Zofran odt 8mg q8 prn, order X-ray abdomen. Medications at Discharge Home Medications apixaban 5 mg tablet (Eliquis) 5 mg PO BID AFIB 08/10/24 atorvastatin 20 mg tablet 20 mg PO DAILY Cholesterol 08/10/24 cholecalciferol (vitamin D3) 125 mcg (5,000 unit) capsule 125 mcg PO DAILY Supplement 08/10/24 diltiazem HCl 240 mg capsule,24 hr,extended release 240 mg PO Q12H Heart 08/10/24 gabapentin 300 mg capsule 300 mg PO QHS Pain 08/10/24 pantoprazole 40 mg tablet,delayed release 40 mg PO DAILY GERD 08/10/24 polyethylene glycol 3350 17 gram/dose oral powder (Miralax) 17 g PO DAILY Constipation 08/10/24 acetaminophen 500 mg tablet 1,000 mg (2 x 500 mg) PO Q6H PRN PRN Pain Score 1-3 #0 tabs 08/23/24 ascorbic acid (vitamin C) 500 mg tablet 500 mg PO 1000 #0 tabs 08/23/24 citalopram 10 mg tablet 10 mg PO DAILY 30 days #30 tabs 08/23/24 docusate sodium 100 mg capsule 100 mg PO BID 30 days #60 caps 08/23/24 ondansetron 4 mg disintegrating tablet 8 mg (2 x 4 mg) PO Q8H PRN PRN Nausea 30 days #90 tabs 08/23/24 polysaccharide iron complex 150 mg iron capsule (Ferrex) 150 mg PO DAILY@0800 30 days #30 caps 08/23/24 Hospital Course Operations None Procedures None Summary of Care Provided Minutes Spent on Discharge: 35 Hospital Course: 73 year old female with below past medical history hospitalized for SBO, gastric outlet obstruction 2/2 incarcerated parastomal hernia, underwent partial colectomy, colostomy, repair parastomal hernia 07/31/2024, complicated by hypokalemia, acute kidney injury, requiring TPN, admitted to TCU with debility, here for rehabilitation, strengthening, prior to discharge home with SO. Discharge home with 08/28/2024, [facility] PT/OT, Rollator. Rollator: Patient is unsafe with a cane and requires frequent rest breaks that can be resolved with use of a rollator for ambulation in the home and the community. Physical Exam Const alert General Appearance: cooperative HEENT normocephalic Eyes PERRL and EOMs intact bilaterally Neck supple, no JVD and no carotid bruits Resp normal respiratory effort, normal air movement and clear to auscultation bilaterally Cardio regular rate and regular rhythm GI normal to inspection, nondistended, normoactive bowel sounds, non-tender and non-distended GI Narrative: Upper abdomen colostomy. Extremity normal capillary refill Extremity Narrative: Right lower extremity PICC line. General Extremity: Negative for edema Skin no rashes or lesions noted General Skin Exam: no breakdown Psych affect normal Appearance: appropriate Weight / BMI Weight Weight: 104.145 kg Body Mass Index (BMI) 36.4 ABG / Lab / Microbiology Data 08/23/24 06:03 08/23/24 06:03 Laboratory: Laboratory Results - last 24 hr 08/23/24 06:03: WBC 7.1, RBC 3.93 L, Hgb 10.1 L, Hct 32.3 L, MCV 82.2, MCH 25.7 L, MCHC 31.3 L, RDW Std Deviation 51.8 H, RDW Coeff of Riccardo 17.2 H, Plt Count 276, MPV 9.6, Immature Gran % (Auto) 0.300, Neut % (Auto) 78.7 H, Lymph % (Auto) 7.5 L, [place] % (Auto) 9.0, Eos % (Auto) 4.1, Baso % (Auto) 0.4, Absolute Neuts (auto) 5.6, Absolute Lymphs (auto) 0.53 L, Nucleated RBC % 0, Sodium 143, Potassium 3.5, Chloride 109 H, Carbon Dioxide 22.6, Anion Gap 11, BUN 11, C reatinine 0.65 L, Estim Creat Clear Calc 74.09, Est GFR (MDRD) Non-Af 92, BUN/Creatinine Ratio 17.1, Glucose 95, Calcium 9.3 Microbiology: Microbiology 08/16/24 12:31 Stool Stool Occult Blood (BILLY) - Final D/C Instructions Discharge Diet: No restrictions Discharge Activity: Return to Normal Activity, May Shower and Use Walker Weight Bearing Status: Weight bearing as tolerated Call your doctor if you observe: Fever of 101 or Higher, Inability to urinate, Inability to have a bowel movement, Shortness of breath, Dizziness, Fainting spells, Swelling in the ankles, Chest pain and Uncontrolled pain DC O2, CPAP, BIPAP Needs Home O2 Discharge instructions: No Additional Instructions: Discharge home with 08/28/2024, [facility] PT/OT, Rollator. Rollator: Patient is unsafe with a cane and requires frequent rest breaks that can be resolved with use of a rollator for ambulation in the home and the community. Please Follow Up With: Suresh Crockett MD When: As scheduled. Meaningful Use Info Meaningful Use Meaningful Use Diagnoses (Choose all that apply): None applicable Ischemic Stroke Statin Dosing Therapy Reference: STATIN DOSE THERAPY REFERENCE: * Patients > 75 years receive moderate or high dose statin therapy. * Patients 75 years or YOUNGER should receive HIGH intensity statin dose unless contraindicated. You will be required to document reason for non-treatment if statin daily dose does not meet guidelines. HIGH DOSE STATIN THERAPY DAILY Atorvastatin > than or = to 40 mg Rosuvastatin > than or = to 20 mg Amlodipine + Atorvastatin > than or = to 2.5/40 mg Ezetimibe + Simvastatin 10/80 mg Simvastatin 80mg Discharge Plan Admission Admit Date/Time: 08/10/24 12:45 Primary Reason for Your Visit: Debility. Attending Provider: Giovany Aldana Chi Primary Care Provider: Meera Monique Instructions Additional Instructions / Restrictions: Discharge home with 08/28/2024, [facility] PT/OT, Rollator. Rollator: Patient is unsafe with a cane and requires frequent rest breaks that can be resolved with use of a rollator for ambulation in the home and the community. Discharge Orders/Prescriptions Prescriptions: New citalopram 10 mg Tablet 10 mg PO DAILY 30 Days Qty: 30 0RF polysaccharide iron complex [Ferrex 150] 150 mg iron Capsule 150 mg PO DAILY@0800 30 Days Qty: 30 0RF acetaminophen 500 mg Tablet 1,000 mg PO Q6H PRN PRN (Reason: Pain Score 1-3) Qty: 0 0RF ascorbic acid (vitamin C) 500 mg Tablet 500 mg PO 1000 Qty: 0 0RF docusate sodium 100 mg Capsule 100 mg PO BID 30 Days Qty: 60 0RF ondansetron 4 mg Tablet,Disintegrating 8 mg PO Q8H PRN PRN (Reason: Nausea) 30 Days Qty: 90 0RF Continued Eliquis 5 mg tablet 5 mg PO BID atorvastatin 20 mg tablet 20 mg PO DAILY cholecalciferol (vitamin D3) 125 mcg (5,000 unit) capsule 125 mcg PO DAILY diltiazem HCl 240 mg capsule,extended release 24 hr 240 mg PO Q12H gabapentin 300 mg capsule 300 mg PO QHS pantoprazole 40 mg tablet,delayed release (DR/EC) 40 mg PO DAILY Patient Comments: Take 1 tablet by mouth every morning before breakfast. polyethylene glycol 3350 [Miralax] 17 gram/dose powder 17 g PO DAILY Discontinued docusate sodium [Dulcolax Stool Softener (dss)] 100 mg capsule 100 mg PO BID oxycodone-acetaminophen [Endocet] 5-325 mg tablet 1 tab PO Q6H PRN (Reason: Pain) Patient Comments: Take 1 tablet by mouth for pain 4-10 Referrals / Follow Up: Meera Monique MD [Primary Care Provider] - Disposition Disposition (needs filled in before D/C Order can be placed): Home, Self Care
--- NOTE | 2024-08-23 17:15 | NURSING ---
Order to d/c PICC line for discharge. [facility] contacted regarding PICC line length, and they state is was 41cm. PICC removed and noted to be 41cm and tip intact. Petroleum jelly and CDD applied to site. Patient tolerated well.
[2024-08-23] MEDS: Gabapentin 300 MG Capsule PO (21:27)
[2024-08-23] MEDS: Atorvastatin Calcium 20 MG Tablet PO (21:27)
[2024-08-23 21:28] VITALS: BP 136/73; PULSE 83
[2024-08-24 05:14] VITALS: BMI 35.9
[2024-08-24] MEDS: Iron Polysaccharide Complex 150 MG CAPSULE PO (07:48)
[2024-08-24] MEDS: Docusate Sodium 100 MG Capsule PO ×2 (07:49→21:31)
[2024-08-24] MEDS: dilTIAZem CD 240 MG Capsule PO ×2 (07:49→21:31)
[2024-08-24] MEDS: Citalopram 10 MG Tablet PO (07:49)
[2024-08-24] MEDS: APIXABAN 5 MG TABLET PO ×2 (07:49→21:31)
[2024-08-24] MEDS: Ascorbic Acid 500 MG Tablet PO (07:50)
[2024-08-24] MEDS: Pantoprazole Sodium 40 MG Tablet PO (07:50)
[2024-08-24] MEDS: Cholecalciferol (Vit D3) 125 MCG CAPSULE (5,000 UNITS) PO (07:51)
[2024-08-24 10:00] VITALS: BP 127/68; PULSE 90; RESP 16; TEMP 36.1; O2SAT 96
[2024-08-24] MEDS: Acetaminophen 500 MG Tablet 1000 MG PO (21:30)
[2024-08-24] MEDS: Gabapentin 300 MG Capsule PO (21:30)
[2024-08-24] MEDS: Atorvastatin Calcium 20 MG Tablet PO (21:31)
[2024-08-24 21:34] VITALS: BP 138/69; PULSE 86; RESP 18
[2024-08-25 05:08] VITALS: BMI 35.8
[2024-08-25 09:23] VITALS: BP 103/68; PULSE 72; RESP 17; TEMP 36.6; O2SAT 97
[2024-08-25] MEDS: Acetaminophen 500 MG Tablet 1000 MG PO ×2 (09:32→20:40)
[2024-08-25] MEDS: dilTIAZem CD 240 MG Capsule PO ×2 (09:33→20:41)
[2024-08-25] MEDS: Docusate Sodium 100 MG Capsule PO ×2 (09:33→20:41)
[2024-08-25] MEDS: Iron Polysaccharide Complex 150 MG CAPSULE PO (09:33)
[2024-08-25] MEDS: APIXABAN 5 MG TABLET PO ×2 (09:33→20:41)
[2024-08-25] MEDS: Citalopram 10 MG Tablet PO (09:33)
[2024-08-25] MEDS: Ascorbic Acid 500 MG Tablet PO (09:34)
[2024-08-25] MEDS: Pantoprazole Sodium 40 MG Tablet PO (09:34)
[2024-08-25] MEDS: Cholecalciferol (Vit D3) 125 MCG CAPSULE (5,000 UNITS) PO (09:34)
[2024-08-25] MEDS: Gabapentin 300 MG Capsule PO (20:40)
[2024-08-25] MEDS: Atorvastatin Calcium 20 MG Tablet PO (20:41)
[2024-08-25 20:44] VITALS: BP 133/70; PULSE 75; RESP 16
[2024-08-26 05:05] VITALS: BMI 35.7
[2024-08-26 08:45] VITALS: BP 130/83; PULSE 86; RESP 17; TEMP 36.8; O2SAT 97
[2024-08-26] MEDS: Citalopram 10 MG Tablet PO (08:54)
[2024-08-26] MEDS: Iron Polysaccharide Complex 150 MG CAPSULE PO (08:54)
[2024-08-26] MEDS: Docusate Sodium 100 MG Capsule PO ×2 (08:54→21:04)
[2024-08-26] MEDS: dilTIAZem CD 240 MG Capsule PO ×2 (08:54→21:04)
[2024-08-26] MEDS: APIXABAN 5 MG TABLET PO ×2 (08:54→21:04)
[2024-08-26] MEDS: Ascorbic Acid 500 MG Tablet PO (08:55)
[2024-08-26] MEDS: Polyethylene Glycol 3350 17 GM PACKET PO (08:55)
[2024-08-26] MEDS: Cholecalciferol (Vit D3) 125 MCG CAPSULE (5,000 UNITS) PO (08:55)
[2024-08-26] MEDS: Pantoprazole Sodium 40 MG Tablet PO (08:55)
[2024-08-26] MEDS: Gabapentin 300 MG Capsule PO (21:04)
[2024-08-26] MEDS: Atorvastatin Calcium 20 MG Tablet PO (21:04)
[2024-08-26 21:05] VITALS: BP 149/67; PULSE 78
[2024-08-26] MEDS: Acetaminophen 500 MG Tablet 1000 MG PO (21:07)
[2024-08-27 05:46] VITALS: BMI 35.7
--- NOTE | 2024-08-27 08:24 | CASEMGMT ---
Addendum entered by Mayte Rees 08/27/24 09:30: [facility] can accept. soc 08/29. Addendum entered by Mayte Rees 08/27/24 09:10: Pt is out of [facility] service area. SW sent referral to [facility] via [employer]. Original Note: Social Work SW received call from pt with [facility] preferences: [facility] or [facility]. - SW phoned referral to [facility] for PT/OT/SN. Will await acceptance/denial as pt lives in [place]. Mayte HAWLEY EVENING ANCHOR
[2024-08-27 08:32] VITALS: BP 136/87; PULSE 88; RESP 16; TEMP 36.8; O2SAT 97
[2024-08-27] MEDS: dilTIAZem CD 240 MG Capsule PO ×2 (08:35→21:55)
[2024-08-27] MEDS: Iron Polysaccharide Complex 150 MG CAPSULE PO (08:35)
[2024-08-27] MEDS: Citalopram 10 MG Tablet PO (08:35)
[2024-08-27] MEDS: Cholecalciferol (Vit D3) 125 MCG CAPSULE (5,000 UNITS) PO (08:36)
[2024-08-27] MEDS: Pantoprazole Sodium 40 MG Tablet PO (08:36)
[2024-08-27] MEDS: Docusate Sodium 100 MG Capsule PO ×2 (08:36→21:55)
[2024-08-27] MEDS: Ascorbic Acid 500 MG Tablet PO (08:36)
[2024-08-27] MEDS: APIXABAN 5 MG TABLET PO ×2 (08:36→21:55)
[2024-08-27] MEDS: Acetaminophen 500 MG Tablet 1000 MG PO ×2 (08:41→21:54)
--- NOTE | 2024-08-27 11:38 | CASEMGMT ---
Social Work SW completed BIMS (0) and PHQ-2 (00) for MDS assessment. SW updated pt that [facility] can accept. [facility]HC will contact pt to schedule first visit, but anticipated SOC is 08/29. Rollator will be delivered to the room prior to DC. Pt and appreciative. Mayte Rees KITCHEN RUNNER DOCUMENT MANAGEMENT ANALYST
[2024-08-27 13:00] VITALS: BMI 35.7
--- NOTE | 2024-08-27 14:45 | NURSING ---
called surgeons office to inquire about removing abdominal binder- per surgeons office pt ok to remove unless ambulating
[2024-08-27] MEDS: Gabapentin 300 MG Capsule PO (21:54)
[2024-08-27] MEDS: Atorvastatin Calcium 20 MG Tablet PO (21:56)
[2024-08-27 21:59] VITALS: BP 150/92; PULSE 81
[2024-08-27 22:01] VITALS: PULSE 81; RESP 16
[2024-08-28 06:20] VITALS: RESP 16
[2024-08-28 08:49] VITALS: BP 130/91; PULSE 94; RESP 18; TEMP 36.7; O2SAT 97
[2024-08-28] MEDS: Ascorbic Acid 500 MG Tablet PO (08:52)
[2024-08-28] MEDS: Iron Polysaccharide Complex 150 MG CAPSULE PO (08:52)
[2024-08-28] MEDS: Citalopram 10 MG Tablet PO (08:53)
[2024-08-28] MEDS: Docusate Sodium 100 MG Capsule PO (08:53)
[2024-08-28] MEDS: Cholecalciferol (Vit D3) 125 MCG CAPSULE (5,000 UNITS) PO (08:53)
[2024-08-28] MEDS: dilTIAZem CD 240 MG Capsule PO (08:53)
[2024-08-28] MEDS: APIXABAN 5 MG TABLET PO (08:53)
[2024-08-28] MEDS: Pantoprazole Sodium 40 MG Tablet PO (08:53)
[2024-08-28 11:15] VITALS: BP 152/78; PULSE 90; RESP 16; TEMP 36.5; O2SAT 96
== END 2024-08-28 11:43 | disposition home health service (06) | DRG 949 ==
PROVIDERS: Admitting Provider Family Medicine Geriatric Medicine; PCP Family Medicine; Visit Provider Family Medicine Geriatric Medicine
DX: Z48.815 Encounter for surgical aftercare following surgery on the digestive system (principal); K31.1 Adult hypertrophic pyloric stenosis; K43.3 Parastomal hernia with obstruction, without gangrene; I48.91 Unspecified atrial fibrillation; G62.9 Polyneuropathy, unspecified; I10 Essential (primary) hypertension; Z93.3 Colostomy status; E55.9 Vitamin D deficiency, unspecified; E78.5 Hyperlipidemia, unspecified; K21.9 Gastro-esophageal reflux disease without esophagitis; M19.90 Unspecified osteoarthritis, unspecified site; F41.9 Anxiety disorder, unspecified; D64.89 Other specified anemias; Z87.891 Personal history of nicotine dependence; Z79.01 Long term (current) use of anticoagulants; Z90.49 Acquired absence of other specified parts of digestive tract; Z79.899 Other long term (current) drug therapy; Z85.048 Personal history of other malignant neoplasm of rectum, rectosigmoid junction, and anus
CPT/HCPCS: 36415; 74018; 80048; 80053; 80061; 82274; 82306; 82962; 83540; 83550; 83735; 84100; 84478; 85014; 85018; 85025; 86850; 86900; 86901; 86920; 97110; 97116; 97162; 97165; 97530; 97535; 97802; 97803; P9016; A4216; J1940

== ENCOUNTER 2024-08-17 13:24 | Outpatient (CLI) | payer MEDICARE, SELFPAY ==
[2024-08-17] VITALS (7 sets, daily range): BP systolic 115–159; BP diastolic 60–88; PULSE 68–98; RESP 18; TEMP 36.7–37.1; O2SAT 94–100
[2024-08-17] MEDS: 0.9% Saline Lock 10 ML Syringe IV (16:44)
[2024-08-17] MEDS: Furosemide 20 MG/2 ML VIAL IV (16:44)
== END 2024-08-17 21:13 | disposition home or self-care (01) ==
LOC: MS3OUT 13:26 → MS3 13:26
PROVIDERS: PCP Family Medicine; Referring Provider Family Medicine Geriatric Medicine; Visit Provider Family Medicine Geriatric Medicine
DX: D64.89 Other specified anemias (principal)
CPT/HCPCS: 86850; 86900; 86901; 86920; P9016; A4216; J1940